=== PATIENT | female | born 2000 | race American Indian/Alaskan Native ===

== ENCOUNTER 2021-06-01 15:50 | Inpatient (IN) | payer MEDICAID ==
[2021-06-01] MEDS ORDERED: LACTATED RINGERS 1,000 ML ONE (16:54)
[2021-06-01] MEDS ORDERED: OXYTOCIN 10 UNIT/1 ML INJ IM PRN ×2 (16:55→18:13)
[2021-06-01] MEDS ORDERED: miSOPROStol 200 MCG TAB PR PRN ×2 (16:55→18:13)
[2021-06-01] MEDS ORDERED: LOPERAMIDE 2 MG CAP PO PRN ×2 (16:55→18:13)
[2021-06-01] MEDS ORDERED: METHYLERGONOVINE MALEATE 0.2 MG/ML VIAL IM PRN ×2 (16:55→18:13)
[2021-06-01] MEDS ORDERED: TERBUTALINE 1 MG/1 ML INJ SUB-Q PRN ×2 (16:55→18:13)
[2021-06-01] MEDS ORDERED: LIDOCAINE (2%) 20 MG/1 ML VIAL 20 ML MDV INFILTRATI NR (16:55)
[2021-06-01] MEDS ORDERED: CARBOPROST TROMETHAMINE 250 MCG/1 ML INJ IM PRN ×2 (16:55→18:13)
[2021-06-01] MEDS ORDERED: OXYTOCIN DRIP 30 UNITS/500 ML BAG IV SCH ×4 (17:00→19:00)
[2021-06-01] MEDS: LACTATED RINGERS 1,000 ML IV SCH ×2 (17:30→20:47)
[2021-06-01] MEDS ORDERED: ePHEDrine SULFATE 50 MG/1 ML INJ IV PRN ×3 (17:35→18:13)
[2021-06-01] MEDS ORDERED: NALOXONE 2 MG/2 ML INJ IV PRN (17:35)
[2021-06-01 17:36] LABS: Eosinophils # (Auto) 0.1 K/mm3 (0.0-0.4); Eosinophils % (Auto) 0.6 % (0.0-4.3); Hematocrit 38.3 % (30.3-42.9); Hemoglobin 12.8 gm/dl (10.1-14.3); Lymphocytes # (Auto) 1.5 K/mm3 (1.2-5.4); Lymphocytes % (Auto) 17.5 % (13.4-35.0); Mean Corpuscular HGB Conc 34 % (30-34); Mean Corpuscular Volume 89 fl (79-97); Monocytes # (Auto) 0.5 K/mm3 (0.0-0.8); Monocytes % (Auto) 5.9 % (0.0-7.3); Platelet Count 157 K/mm3 (140-440); Red Blood Count 4.32 M/mm3 (3.65-5.03); Red Cell Distribution Width 15.4 % (13.2-15.2)
--- NOTE | 2021-06-01 17:36 | Anesthesia Consultation ---
Anesthesia Consult and Med Hx Date of service: 06/01/21 - Airway Anesthetic Teeth Evaluation: Good ROM Head & Neck: Adequate Mental/Hyoid Distance: Adequate Mallampati Class: Class II Intubation Access Assessment: Probably Good - Pulmonary Exam CTA: Yes - Cardiac Exam Cardiac Exam: RRR - Pre-Operative Health Status ASA Pre-Surgery Classification: ASA2 Proposed Anesthetic Plan: Epidural - Pulmonary Hx Asthma: No - Cardiovascular System Hx Hypertension: No - Central Nervous System Hx Seizures: No Hx Psychiatric Problems: No - Endocrine Hx Renal Disease: No Hx Hypothyroidism: No Hx Hyperthyroidism: No - Hematic Hx Anemia: No Hx Sickle Cell Disease: No - Other Systems Hx Alcohol Use: No
[2021-06-01] MEDS ORDERED: BUTORPHANOL 2 MG/1 ML INJ IV PRN ×3 (18:00→18:13)
[2021-06-01] MEDS ORDERED: ACETAMINOPHEN 325 MG TAB PO PRN ×2 (18:00→18:13)
[2021-06-01] MEDS ORDERED: ONDANSETRON 4 MG/2 ML INJ IV PRN ×2 (18:00→18:13)
[2021-06-01] MEDS ORDERED: NalbUPHINE 10 MG/1 ML INJ IV PRN (18:00)
[2021-06-01] MEDS ORDERED: fentaNYL 100 MCG/2 ML INJ IV PRN ×2 (18:00→18:13)
[2021-06-01] MEDS ORDERED: fentaNYL-BUPIV 2 MCG/ML-0.125% 200 MCG/100 ML BAG EPIDURAL SCH (18:00)
--- NOTE | 2021-06-01 18:01 | Progress Note ---
Labor Epidural - Labor Epidural Start Time: 17:43 Stop Time: 18:00 Performed by:: JONATHON MALDONADO Procedure: Patient is requesting epidural for labor pain. H&P, and labs reviewed. Procedure explained, questions answered, consent obtained. Patient in sitting position with blood pressure cuff and pulse ox on and working. Timeout performed immediately before start of procedure. Sterile chlorahexadine 0.5% prep/drape. 3 mL 1% lidocaine skin wheal at L[3]-L[4]. 18-gauge SweetIQ Analyticstead epidural needle advanced to [id number] with saline at [7] cm. Epidural catheter advanced to [12] cm, negative aspiration for blood and csf, negative test dose 3 ml 1.5% lidocaine with epinephrine. Epidural dexmedetomidine [30] mcg administered. Sterile steri-strips and tegaderm applied, followed by tape reinforcement. Patient tolerated procedure well. Sky FARRELL
[2021-06-01] MEDS ORDERED: MINERAL OIL 30 ML ORAL LIQD PO PRN ×3 (18:13→22:00)
[2021-06-01] MEDS ORDERED: NALOXONE 0.4 MG/1 ML INJ IV PRN (18:13)
[2021-06-01] MEDS ORDERED: LIDOCAINE (2%) 20 MG/1 ML VIAL 20 ML MDV INFILTRATI ONE (18:13)
[2021-06-01] MEDS ORDERED: LACTATED RINGERS 1,000 ML IV SCH (18:15)
--- NOTE | 2021-06-01 18:26 | History and Physical Report ---
History of Present Illness Date of examination: 06/01/21 Date of admission: 06/01/21 17:45 Chief complaint: labor History of present illness: Patient is a 20-year-old primigravida at 39 weeks presented in active labor to labor and delivery. 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 Her trichomonas test was also negative. She had ultrasound done at 9 weeks on 11/03/2020 she had a Materna T 21 test that was negative she had a repeat ultrasound done on 01/26/2021 consistent with 20.4 weeks her glucose screen was 118 her hematocrit was 33.6% initially repeat VDRL was nonreactive gonorrhea and Chlamydia tests repeat were negative group B strep test was negative trichomonas test was also negative. Family medical history is positive for type 1 diabetes in grandmother past medical history shows HSV-2 positive no surgery catamenia 13 x 28 finding heavy. This is her first the patient denies the use of alcohol or smoking or use of illicit substances. Patient is admitted in active labor. Expectant vaginal delivery. Past History Past Medical History: other (HSV2) Past Surgical History: no surgical history Family/Genetic History: diabetes Social history: single - Obstetrical History Expected Date of Delivery: 06/08/21 Actual Gestation: 39 Week(s) 0 Day(s) : 1 Para: 0 Hx # Term Pregnancies: 0 Number of Pregnancies: 0 Spontaneous Abortions: 0 Induced : 0 Number of Living Children: 0 Medications and Allergies Allergies Allergy/AdvReac Type Severity Reaction Status Date / Time No Known Allergies Allergy Unverified 06/01/21 16:52 Home Medications Medication Instructions Recorded Confirmed Last Taken Type No Known Home Medications [No 06/01/21 06/01/21 Unknown History Reported Home Medications] Active Meds: Active Medications Acetaminophen (Acetaminophen 325 Mg Tab) 650 mg PO Q4H PRN PRN Reason: Pain, Mild (1-3) Butorphanol Tartrate (Butorphanol 2 Mg/1 Ml Inj) 1 mg IV Q2H PRN PRN Reason: Pain, Moderate(4-6) LABOR PAIN Butorphanol Tartrate (Butorphanol 2 Mg/1 Ml Inj) 2 mg IV Q2H PRN PRN Reason: Pain , Severe (7-10) Carboprost Tromethamine (Carboprost Tromethamine 250 Mcg/1 Ml Inj) 250 mcg IM ONCE PRN PRN Reason: Uterine Bleeding Stop: 06/02/21 16:54 Ephedrine Sulfate (Ephedrine Sulfate 50 Mg/1 Ml Inj) 10 mg IV Q2M PRN PRN Reason: Hypotension Fentanyl (Fentanyl 100 Mcg/2 Ml Inj) 100 mcg IV Q2H PRN PRN Reason: Pain,Severe (7-10) LABOR PAIN Last Admin: 06/01/21 17:18 Dose: 100 mcg Documented by: Oxytocin/Sodium Chloride (Pitocin/Ns 30 Unit/500ml) 30 units in 500 mls @ 2 mls/hr IV TITR TOMASA; Protocol Lactated Ringer's (Lactated Ringers) 1,000 mls @ 125 mls/hr IV DIRECT TOMASA Oxytocin/Sodium Chloride (Pitocin/Ns 30 Unit/500ml) 30 units in 500 mls @ 40 mls/hr IV TITR TOMASA; Protocol Fentanyl/Bupivacaine/Sodium Chlor (Fentanyl-Bupiv 2 Mcg/Ml-0.125%) 200 mcg in 100 mls @ 12 mls/hr EPIDURAL TITR TOMASA; Protocol Lidocaine (Lidocaine (2%) 20 Mg/1 Ml Vial 20 Ml Mdv) 20 ml INFILTRATI ONCE NR Stop: 06/02/21 16:54 Lidocaine (Lidocaine (2%) 20 Mg/1 Ml Vial 20 Ml Mdv) 20 ml INFILTRATI ONCE ONE Stop: 06/01/21 18:14 Loperamide HCl (Loperamide 2 Mg Cap) 2 mg PO ONCE PRN PRN Reason: give with Hemabate Stop: 06/02/21 16:54 Methylergonovine Maleate (Methylergonovine Maleate 0.2 Mg/Ml Vial) 0.2 mg IM ONCE PRN PRN Reason: Uterine Bleeding Stop: 06/02/21 16:54 Mineral Oil (Mineral Oil 30 Ml Oral Liqd) 30 ml PO QHS PRN PRN Reason: Constipation Mineral Oil (Mineral Oil 30 Ml Oral Liqd) 30 ml PO QHS PRN PRN Reason: Constipation Misoprostol (Misoprostol 200 Mcg Tab) 800 mcg NE ONCE PRN PRN Reason: Uterine Bleeding Stop: 06/02/21 16:54 Nalbuphine HCl (Nalbuphine 10 Mg/1 Ml Inj) 10 mg IV Q2H PRN PRN Reason: Pain, Moderate (4-6) Naloxone HCl (Naloxone 2 Mg/2 Ml Inj) 0.2 mg IV Q5M PRN PRN Reason: Respiratory sedation Ondansetron HCl (Ondansetron 4 Mg/2 Ml Inj) 4 mg IV Q8H PRN PRN Reason: Nausea And Vomiting Oxytocin (Oxytocin 10 Unit/1 Ml Inj) 10 unit IM ONCE PRN PRN Reason: Uterine Bleeding Stop: 06/02/21 16:54 Terbutaline Sulfate (Terbutaline 1 Mg/1 Ml Inj) 0.25 mg SUB-Q ONCE PRN PRN Reason: Hyperstimulation/Hypertonicity Stop: 06/02/21 16:54 Terbutaline Sulfate (Terbutaline 1 Mg/1 Ml Inj) 0.25 mg SUB-Q ONCE PRN PRN Reason: Hyperstimulation/Hypertonicity Review of Systems All systems: negative - Vital Signs Vital signs: Vital Signs Temp Pulse Resp Pulse Ox 97.7 F 66 16 99 06/01/21 16:25 06/01/21 16:25 06/01/21 16:25 06/01/21 16:25 Temp Pulse Resp BP Pulse Ox 97.7 F 74 16 123/73 99 06/01/21 16:25 06/01/21 18:17 06/01/21 16:25 06/01/21 18:04 06/01/21 18:17 - Physical Exam Breasts: Positive: normal Cardiovascular: Regular rate, Normal S1, Normal S2 Lungs: Positive: Clear to auscultation, Normal air movement Abdomen: Positive: normal appearance, soft, normal bowel sounds. Negative: distention, tenderness Genitourinary (Female): Positive: normal external genitalia, normal perenium Vulva: both: normal Vagina: Positive: normal moisture. Negative: discharge Cervix: Negative: lesion, discharge Uterus: Positive: normal size, enlarged, normal contour Adnexa: both: normal Anus/Rectum: Positive: normal perianal skin, heme negative. Negative: rectal mass, hemorrhoids Extremities: Positive: normal Deep Tendon Reflex Grade: Normal +2 - Obstetrical FHR: category 1 Uterine Contraction Monitor Mode: External Cervical Dilatation: 8 Cervical Effacement Percentage: 70 station: -2 Uterine Contraction Frequency (min): Q3MIN Uterine Contraction Duration: 1 MIN Uterine Contraction Pattern: Regular Uterine Tone Measurement Phase: Resting Uterine Contraction Intensity: Moderate Results Result Diagrams: 06/01/21 17:00 Abnormal lab results 06/01/21 Range/Units 17:00 RDW 15.4 H (13.2-15.2) % Seg Neutrophils % 75.7 H (40.0-70.0) % All other labs normal. Assessment and Plan 39 WKS IUP ACTIVE LABOR. EXPECTANT VAG DELIVERY.
[2021-06-01] MEDS ORDERED: MINERAL OIL 30 ML ORAL LIQD ONE (19:29)
--- NOTE | 2021-06-01 19:47 | Procedure Note ---
Date of procedure: 06/01/21 Pre-op diagnosis: 39 wks iup. labor Post-op diagnosis: same (meconium) Procedure: This is Dr. Rios dictating delivery note on the patient. Preoperative diagnosis 39-week intrauterine , active labor. Postoperative diagnosis same and meconium. First procedure normal spontaneous vaginal delivery. Of the placenta. Estimated blood loss 200 cc. Since we do the patient had. Once the vertex was delivered we suction the baby copiously with the nasopharynx and oropharynx. There was a nuchal cord.. The rest of the baby's body was delivered. The baby was passed off to the nurses from the nursery. Weight of the baby is 6 pounds 2 ounces Apgars 7 and 8 is a male infant. Complications none. We checked the patient for tears there were no tears in the vagina or vulva and the rectal mucosa was intact.. The patient tolerated procedure well. Anesthesia: epidural Surgeon: PAOLO RIOS Estimated blood loss: other (200 ccs) Pathology: none Specimen disposition: discarded Condition: stable Disposition: floor
[2021-06-01 20:42] LABS: Hematocrit 38.7 % (30.3-42.9); Mean Corpuscular HGB Conc 34 % (30-34); Mean Corpuscular Volume 89 fl (79-97); Platelet Count 158 K/mm3 (140-440); Red Blood Count 4.34 M/mm3 (3.65-5.03); Red Cell Distribution Width 15.7 % (13.2-15.2)
[2021-06-02] MEDS ORDERED: IBUPROFEN 600 MG TAB PO PRN (03:31)
[2021-06-02] MEDS ORDERED: HYDROcodone/ACETAMINOPHEN 5-325 MG TAB PO PRN (03:32)
[2021-06-02] MEDS ORDERED: PROMETHAZINE 25 MG RECT SUPP PR PRN (03:41)
[2021-06-02] MEDS ORDERED: ONDANSETRON 4 MG/2 ML INJ IV PRN (03:41)
[2021-06-02] MEDS ORDERED: diphenhydrAMINE 25 MG CAP PO PRN (03:41)
[2021-06-02] MEDS ORDERED: ACETAMINOPHEN 325 MG TAB PO PRN (03:41)
[2021-06-02] MEDS ORDERED: MAGNESIUM HYDROXIDE (MOM) ORAL LIQD UDC PO PRN (03:41)
[2021-06-02] MEDS ORDERED: PROMETHAZINE 25 MG TAB PO PRN (03:41)
[2021-06-02] MEDS ORDERED: LANOLIN/ZINC/DIMETHICONE (LANSINOH) 7 GM TP PRN (03:41)
[2021-06-02] MEDS ORDERED: WITCH HAZEL/ GLYCERIN PAD TP PRN (03:41)
--- NOTE | 2021-06-02 09:25 | Progress Note ---
Assessment and Plan PPD # 1 A: S/P P: Continue routine pp care D/c home tomm if stable Subjective - Subjective Date of service: 06/02/21 Principal diagnosis: s/p Patient reports: appetite normal, voiding normally, pain well controlled, ambulating normally [place]: doing well, bottle feeding Objective - Vital Signs Latest vital signs: Vital Signs Temp Pulse Resp BP BP Pulse Ox Pulse Ox 06/02/21 08:20 98 06/02/21 08:12 97.8 F 71 18 115/75 98 06/02/21 04:34 98.0 F 69 18 113/56 96 06/02/21 00:44 100 06/02/21 00:36 32.1 F L 70 18 108/58 97 06/01/21 22:30 100 06/01/21 22:25 98.6 F 68 18 97/56 97 06/01/21 21:47 63 93 06/01/21 21:46 57 L 99 06/01/21 21:45 62 111/55 06/01/21 21:41 61 99 06/01/21 21:36 67 98 06/01/21 21:31 79 99 06/01/21 21:28 96 H 104/51 06/01/21 21:26 65 98 06/01/21 21:21 64 97 06/01/21 21:17 78 104/57 06/01/21 21:16 61 98 06/01/21 21:11 65 97 06/01/21 21:06 65 98 06/01/21 21:01 62 99 06/01/21 20:58 57 L 113/61 06/01/21 20:56 66 102/58 98 06/01/21 20:51 58 L 99 06/01/21 20:46 56 L 98 06/01/21 20:43 65 98/59 06/01/21 20:41 59 L 99 06/01/21 20:36 74 98 06/01/21 20:33 69 99/51 06/01/21 20:31 76 99 06/01/21 20:28 63 92/53 06/01/21 20:27 75 98 06/01/21 20:25 66 18 99/52 97 06/01/21 20:22 60 99 06/01/21 20:16 66 97 06/01/21 20:14 63 110/53 08/11/21 20:11 73 98 06/01/21 20:10 63 16 110/53 97 06/01/21 20:07 68 98 06/01/21 20:01 68 99 06/01/21 19:58 65 114/58 06/01/21 19:57 66 98 06/01/21 19:55 65 18 114/58 98 06/01/21 19:52 67 98 06/01/21 19:47 73 97 06/01/21 19:43 65 108/54 06/01/21 19:42 72 98 06/01/21 19:40 65 17 108/54 98 06/01/21 19:36 68 98 06/01/21 19:35 97.8 F 68 18 98 06/01/21 19:32 61 100 06/01/21 19:27 63 100 06/01/21 19:22 57 L 100 06/01/21 19:17 61 100 06/01/21 19:11 56 L 100 06/01/21 19:09 97.7 F 56 L 20 98 06/01/21 19:07 56 L 100 06/01/21 19:02 62 100 06/01/21 18:57 58 L 100 06/01/21 18:52 67 99 06/01/21 18:47 67 100 06/01/21 18:42 68 100 06/01/21 18:37 65 100 06/01/21 18:36 72 88 06/01/21 18:32 68 100 06/01/21 18:30 55 L 111/53 06/01/21 18:27 57 L 100 06/01/21 18:22 65 99 06/01/21 18:17 74 99 06/01/21 18:12 65 100 06/01/21 18:07 69 100 06/01/21 18:04 88 123/73 06/01/21 18:02 66 100 06/01/21 17:57 70 100 06/01/21 17:52 90 99 06/01/21 17:50 65 132/78 06/01/21 17:47 85 99 06/01/21 17:42 98 H 100 06/01/21 17:37 66 99 06/01/21 17:32 68 98 06/01/21 17:28 99 06/01/21 17:27 69 97 06/01/21 17:22 74 98 06/01/21 17:17 70 100 06/01/21 17:12 79 96 06/01/21 17:07 70 97 06/01/21 17:05 67 94 06/01/21 17:02 71 96 06/01/21 16:58 65 94 06/01/21 16:57 67 99 06/01/21 16:41 79 98 06/01/21 16:35 80 98 06/01/21 16:30 91 H 99 06/01/21 16:26 55 L 124/65 06/01/21 16:25 97.7 F 66 16 99 Intake and Output 06/01/21 06/02/21 06/02/21 22:59 06:59 14:59 Intake Total 410.417 120 Output Total 800 600 Balance 410.417 -800 -480 Intake: IV 410.417 Lactated Ringers 1,000 ml 410.417 @ 125 mls/hr IV DIRECT TOMASA Rx#:[id number] Oral 120 Output: Urine 800 600 Void 800 600 Other: Total, Intake Amount 120 Total, Output Amount 800 600 Weight 152 lb - Exam Breasts: Present: normal Abdomen: Present: normal appearance, soft, normal bowel sounds Vulva: both: normal Uterus: Present: normal, firm, fundal height below umbilicus Extremities: Present: normal - Labs Labs: Abnormal lab results 06/01/21 06/01/21 Range/Units 17:00 20:26 RDW 15.4 H 15.7 H (13.2-15.2) % Seg Neutrophils % 75.7 H (40.0-70.0) %
--- NOTE | 2021-06-02 09:30 | Discharge Summary ---
Providers - Providers Date of Admission: 06/01/21 17:45 Date of discharge: 06/03/21 Attending physician: PAOLO RIOS MD Primary care physician: PAOLO RIOS MD Hospitalization Reason for admission: active labor, IUP at term Delivery: Episiotomy: none Laceration: none Other procedures: none complications: none Discharge diagnosis: IUP at term delivered [place] baby: male Hospital course: Pt was admitted to [facility] and had a w/o pp complications. See H&p, delivery summary, and pp notes Condition at discharge: Stable Disposition: DC-01 TO HOME OR SELFCARE Plan - Discharge Medications Prescriptions: Ibuprofen [Ibu-200] 600 mg PO Q6H PRN #60 tablet PRN Reason: Menstrual Cramps - Provider Discharge Summary Additional instructions: [] Smoking cessation referral if applicable(refer to patient education folder for contact #) [] Refer to [facility]'s [facility] Booklet Call your doctor immediately for: * Fever > 100.5 * Heavy vaginal bleeding ( >1 pad per hour) * Severe persistent headache * Shortness of breath * Reddened, hot, painful area to leg or breast * Drainage or odor from incision. * Keep incision clean and dry at all times and follow doctor's instructions regarding bathing/showering - Follow up plan Follow up: PAOLO RIOS MD [Primary Care Provider] - 6 Weeks
[2021-06-02] MEDS: IBUPROFEN 600 MG TAB PO SCH ×2 (10:10→21:46)
[2021-06-02] MEDS: HYDROcodone/ACETAMINOPHEN 5-325 MG TAB PO PRN (15:51)
[2021-06-02 16:50] LABS: Hematocrit 35.5 % (30.3-42.9); Hemoglobin 11.7 gm/dl (10.1-14.3)
[2021-06-03] MEDS: IBUPROFEN 600 MG TAB PO SCH ×2 (05:46→05:50)
--- NOTE | 2021-06-03 13:25 | Progress Note ---
Subjective Date of service: 06/03/21 Principal diagnosis: s/p Interval history: 2nd day after normal vaginal delivery Patient is resting in the bed in semi sitting position. Complains to moderate intensity headache in the frontal area. Headache is the same in flat or sitting position, no reaction to day light. Blood pressure is normal. Conclusion. The reason of headache is not clear. Not very typical for spinal headache. Decided to observe, treat with Fiorecet Objective - Constitutional Vitals: Vital Signs - 12hr 06/03/21 06/03/21 08:12 08:40 Temperature 98.5 F Pulse Rate 58 L Respiratory 18 Rate Blood Pressure 123/63 O2 Sat by Pulse 96 Oximetry O2 Sat by Pulse 100 Oximetry [ Bilateral] - Labs CBC & Chem 7: 06/02/21 15:45
[2021-06-03] MEDS: BUTALB/ACETAMINOPHEN/CAFFEINE TAB PO PRN (14:05)
--- NOTE | 2021-06-03 17:17 | Event Note ---
Date: 06/03/21 Called by mother/Baby unit to reassess Patient for headache, not relieved by medication. I talked to pt at bedside, described a classic PDH. Advised her to turn off lights and lay flat, and would reassess pt in 30 min, returned 30 min later with pt lying flat in the dark, pt said her head was gone, i had her sit up and headache immediately returned. Recommended we do a blood patch the relieve PDH. Described risk benefits, pt agreed and signed consent for blood patch. returned with equipment to before blood patch. [id number] Patient consented to blood patch for postdural puncture headache. Patient IDed, H&P reviewed, all questions and concerns were answered, and consent was signed. Timeout was performed at bedside. Patient in sitting position. Sterile prep and drape was performed. 3ml of 1% lidocaine skin wheal at L[3]- L [4]. 18-gauge Tuohy epidural needle was advanced to loss of resistance with air technique cm. Negative CSF negative blood. 18 g IV catheter was placed in L AC under sterile technique, 20 cc blood was obtained had administered under sterile conditions through epidural needle, 4 cc blood administer, put felt pressure in pain in back and headache was initially relieved all equipment removed and Sterile dressing applied. Patient tolerated procedure. Time Out 1645 procedure start 1646 procedure stop 1700 Sarath Yates CRNA
--- NOTE | 2021-06-03 18:16 | Progress Note ---
Assessment and Plan A: day 2 S/P . Headache, resolved. P: Anticipate discharge home tomorrow if patient continues to do well. Subjective - Subjective Date of service: 06/03/21 Principal diagnosis: day 2 S/P Interval history: Patient received blood patch today for spinal headache per nurse. Patient also received Fioricet. Patient states she is feeling better and her headache has resolved. Patient reports: appetite normal, voiding normally, pain well controlled, flatus, ambulating normally, no dizzy ambulation, no nauseated [place]: doing well Objective - Vital Signs Latest vital signs: Vital Signs Temp Pulse Resp BP BP Pulse Ox Pulse Ox 06/03/21 15:40 98.2 F 69 20 121/59 06/03/21 08:40 100 06/03/21 08:12 98.5 F 58 L 18 123/63 96 06/03/21 00:13 97.9 F 68 18 107/55 128/77 96 06/02/21 20:06 100 Intake and Output 06/03/21 06/03/21 06/03/21 07:59 15:59 23:59 Intake Total 240 1000 120 Balance 240 1000 120 Intake: Oral 240 1000 120 Other: Total, Intake Amount 120 360 120 # Voids Void 1 1 1 - Exam Cardiovascular: Present: Regular rate Lungs: Present: Clear to auscultation Abdomen: Present: normal appearance, soft, normal bowel sounds. Absent: distention, tenderness, guarding, rigidity Uterus: Present: normal, firm, fundal height below umbilicus. Absent: bogginess, tenderness Extremities: Present: normal. Absent: tenderness, edema
[2021-06-03] MEDS: HYDROcodone/ACETAMINOPHEN 5-325 MG TAB PO PRN (21:47)
--- NOTE | 2021-06-04 07:29 | Event Note ---
Date: 06/04/21 Patient's headache had resolved as of last evening. Patient states her headache returned in the middle of the night. Also reports neck pain and back pain now. Spoke with anesthesia and VAN Rangel, states that headache is unlikely to be related to epidural. Hospitalist consult ordered.
[2021-06-04] MEDS: BUTALB/ACETAMINOPHEN/CAFFEINE TAB PO PRN (08:25)
[2021-06-04 09:38] VITALS: BP 124/73
--- NOTE | 2021-06-04 10:35 | Progress Note ---
Assessment and Plan pt desires to be d/c to another facility d/c ppwrk completed does not meet transfer criteria Mandy Arredondo MD Subjective - Subjective Date of service: 06/04/21 Principal diagnosis: day 2 S/P Patient reports: appetite normal, voiding normally, pain well controlled, ambulating normally [place]: doing well Objective - Vital Signs Latest vital signs: Vital Signs Temp Pulse Resp BP BP Pulse Ox Pulse Ox 06/04/21 08:28 98.0 F 56 L 18 124/73 97 06/04/21 08:00 98 06/03/21 21:47 12 06/03/21 20:30 98 06/03/21 15:40 98.2 F 69 20 121/59 Intake and Output 06/03/21 06/04/21 06/04/21 23:59 07:59 15:59 Intake Total 360 240 240 Balance 360 240 240 Intake: Oral 120 240 Intake, Free Water 240 240 Other: Total, Intake Amount 120 240 # Voids Void 1 1 1 - Exam Breasts: Present: deferred Cardiovascular: Present: Regular rate Lungs: Present: Clear to auscultation Abdomen: Present: normal appearance, soft, normal bowel sounds Vulva: both: normal Uterus: Present: fundal height below umbilicus Extremities: Present: normal Deep Tendon Reflex Grade: Normal but brisk +3
[2021-06-04] MEDS: HYDROcodone/ACETAMINOPHEN 5-325 MG TAB PO PRN (11:22)
[2021-06-04] MEDS: IBUPROFEN 600 MG TAB PO SCH (11:22)
--- NOTE | 2021-06-04 11:37 | Discharge Summary ---
Providers - Providers Date of Admission: 06/01/21 17:45 Date of discharge: 06/04/21 Attending physician: PAOLO RIOS MD 06/04/21 07:25 Consult to Physician [CONS] Routine Comment: patient; has already seen anesthesia Consulting Provider: KEATON MARCUM Physician Instructions: Reason For Exam: Persistent headache, neck pain, back pain Primary care physician: PAOLO RIOS MD Hospitalization Discharge diagnosis: IUP at term delivered Condition at discharge: Stable Disposition: 01 HOME / SELF CARE / HOMELESS Plan - Discharge Medications Prescriptions: Ibuprofen [Ibu-200] 600 mg PO Q6H PRN #60 tablet PRN Reason: Menstrual Cramps - Provider Discharge Summary Activity: no sex for 6 weeks Diet: routine Additional instructions: [] Smoking cessation referral if applicable(refer to patient education folder for contact #) [] Refer to [facility] Booklet Call your doctor immediately for: * Fever > 100.5 * Heavy vaginal bleeding ( >1 pad per hour) * Severe persistent headache * Shortness of breath * Reddened, hot, painful area to leg or breast * Drainage or odor from incision. * Keep incision clean and dry at all times and follow doctor's instructions regarding bathing/showering - Follow up plan Follow up: PAOLO RIOS MD [Primary Care Provider] - 6 Weeks Forms: [facility] Discharge Summary
== END 2021-06-04 13:03 | disposition home or self-care (01) | DRG 775 ==
LOC: TRG 15:50 → APU 15:51 → LD 16:49 → TRG 16:55 → LD 17:45 → OB 22:20
PROC: 10E0XZZ Delivery of Products of Conception, External Approach (ICD-10-PCS; principal; 2021-06-01)
PROC: 3E0R3BZ Introduction of Anesthetic Agent into Spinal Canal, Percutaneous Approach (ICD-10-PCS; 2021-06-01)
PROC: 3E0R33Z Introduction of Anti-inflammatory into Spinal Canal, Percutaneous Approach (ICD-10-PCS; 2021-06-01)
PROC: 3E0R3GC Introduction of Other Therapeutic Substance into Spinal Canal, Percutaneous Approach (ICD-10-PCS; 2021-06-03)
DX: O77.0 Labor and delivery complicated by meconium in amniotic fluid (principal); O69.81X0 Labor and delivery complicated by cord around neck, without compression, not applicable or unspecified; O99.354 Diseases of the nervous system complicating childbirth; O75.89 Other specified complications of labor and delivery; R51.9 Headache, unspecified; Z20.822 Contact with and (suspected) exposure to COVID-19; Z3A.39 39 weeks gestation of pregnancy; Z37.0 Single live birth; Z83.3 Family history of diabetes mellitus
CPT/HCPCS: 36415; 59025; 85014; 85018; 85025; 85027; 86592; 86850; 86900; 86901; 96360; 99211; G0378; G0463; J2590; J3010; J7120; U0003